=== PATIENT | female | born 1945 | race Caucasian/White ===

== ENCOUNTER → 2018-03-11 | Outpatient (CLI) | payer MEDICARE ==
[~2018-03-11] MED LIST: BACTRIM DS TAB1 EACH PO; HYDROCODONE-IB1 EACH PO; OXYCODONE HCL 55 MG PO; ZOFRAN ODT4 MG PO
== END ==
LOC: M.RAD 09:16
DX: I82.629 Acute embolism and thrombosis of deep veins of unspecified upper extremity (principal); R91.1 Solitary pulmonary nodule; Z90.10 Acquired absence of unspecified breast and nipple

== ENCOUNTER → 2018-03-16 | Outpatient (CLI) | payer MEDICARE | LOC: M.CT 10:13 | DX: R91.8 Other nonspecific abnormal finding of lung field (principal); Z85.3 Personal history of malignant neoplasm of breast ==

== ENCOUNTER → 2019-02-24 | Outpatient (CLI) | payer MEDICARE ==
[2019-02-24 13:00] VITALS: BP 132/81
[2019-02-24 15:40] VITALS: BP 139/81
--- NOTE | 2019-02-24 15:58 | NUR ---
PT ARRIVED TO UNIT AT 1240, SETTLED INTO ROOM WITH ISOLATION PRECAUTIONS DUE TO C-DIFF. SPOUSE CLEANED HER UP SINCE SHE HAS BEEN HAVING SOME DIARHHEA. PT POSITIONED ON CART, AND L-CHEST PORT ACCESSED. NS INFUSION STARTED, AND LATER THE MAGNESIUM. PT TOLERATED WELL. PORT DEACCESSED AT 1540, AND PT DC'ED TO HOME AT 1558.
== END ==
LOC: M.INFUS 11:56
DX: C54.1 Malignant neoplasm of endometrium (principal); A04.72 Enterocolitis due to Clostridium difficile, not specified as recurrent